=== PATIENT | female | born 1955 | race Caucasian/White ===

== ENCOUNTER 2017-01-01 09:20 | Inpatient (IN) | payer BC, OTHER ==
[~2017-01-01] VITALS: Ht 162.6 cm; Wt 83.3 kg
[2017-01-01] MEDS ORDERED: SODIUM CHLORIDE 0.9% 1,000 ML IV ONE ×2 (09:28→10:27)
[2017-01-01] MEDS ORDERED: SODIUM CHLORIDE 0.9% 1,000ML IVBOLUS ONE ×2 (09:30→10:30)
[2017-01-01] MEDS ORDERED: SODIUM CHLORIDE FLUSH 10ML SYR IVF ONE (09:30)
[2017-01-01] MEDS ORDERED: PLEASE ENTER ALLERGIES MC SCH ×2 (10:00)
[2017-01-01 10:05] LABS: ASPARTATE AMINO TRANSFERASE 25 U/L (15-37); BLOOD UREA NITROGEN 18 mg/dL (7-18)
[2017-01-01 10:11] LABS: IS PT STATUS REG ER OR PRE ER? YES
[2017-01-01] MEDS ORDERED: OMNIPAQUE 350 MG/ML, 150 ML BOTTLE ONE (11:14)
[2017-01-01] MEDS ORDERED: OXYC15TA PO (13:30)
[2017-01-01] MEDS ORDERED: PHEN37.53 PO (13:30)
[2017-01-01] MEDS ORDERED: ZOLP10TA PO (13:30)
[2017-01-01] MEDS ORDERED: ONDANSETRON 2MG/ML, 2ML IVPush PRN (14:00)
[2017-01-01] MEDS ORDERED: POLYETHYLENE GLYCOL 17 GM PACKET PO PRN (14:00)
[2017-01-01] MEDS ORDERED: hydrALAzine 20 MG/ML, 1ML IVPush PRN (14:00)
[2017-01-01] MEDS ORDERED: LABETALOL 5MG/ML 40ML VIAL IVPush PRN (14:00)
[2017-01-01] MEDS ORDERED: ACETAMINOPHEN 325 MG TABLET PO PRN (14:00)
[2017-01-01 15:40] VITALS: BP 137/63
[2017-01-01] MEDS: SODIUM CHLORIDE FLUSH 3ML SYRINGE IVF SCH (21:00)
[2017-01-01] MEDS: CLOPIDOGREL 75 MG TABLET PO SCH (21:19)
[2017-01-01] MEDS: OXYcodone IR 5MG TABLET PO PRN (21:24)
[2017-01-01] MEDS: TEMAZEPAM 15 MG CAPSULE PO PRN (21:24)
[2017-01-02] MEDS: OXYcodone IR 5MG TABLET PO PRN ×4 (02:08→22:37)
[2017-01-02 04:00] VITALS: BP 105/54
[2017-01-02 07:27] LABS: BLOOD UREA NITROGEN 12 mg/dL (7-18)
[2017-01-02 07:31] LABS: ASPARTATE AMINO TRANSFERASE 17 U/L (15-37)
[2017-01-02] MEDS: CLOPIDOGREL 75 MG TABLET PO SCH (08:16)
[2017-01-02] MEDS: SODIUM CHLORIDE FLUSH 3ML SYRINGE IVF SCH ×2 (08:18→21:00)
[2017-01-02] MEDS ORDERED: SENNA/DOCUSATE TABLET PO SCH (09:00)
[2017-01-02 10:30] VITALS: BP 119/72
[2017-01-02 12:25] VITALS: BP 117/74
[2017-01-02 19:53] VITALS: BP 134/83
[2017-01-02] MEDS: TEMAZEPAM 15 MG CAPSULE PO PRN (22:37)
[2017-01-03 03:00] VITALS: BP 117/76
[2017-01-03] MEDS: OXYcodone IR 5MG TABLET PO PRN ×2 (05:02→11:58)
[2017-01-03 06:35] VITALS: BP 126/73
[2017-01-03] MEDS: CLOPIDOGREL 75 MG TABLET PO SCH (09:00)
[2017-01-03] MEDS ORDERED: SENNA/DOCUSATE TABLET PO SCH (09:00)
[2017-01-03] MEDS: SODIUM CHLORIDE FLUSH 3ML SYRINGE IVF SCH (09:01)
[2017-01-03] MEDS ORDERED: CLOP75TA PO (11:07)
[2017-01-03 12:20] VITALS: BP 137/81
== END 2017-01-03 17:00 | disposition home or self-care (01) | DRG 91 ==
LOC: ED 09:58 → EDIP 13:59 → CCU 15:38 → 4WST 01-02 09:42
PROVIDERS: ADMIT Internal Medicine; ATTEND Internal Medicine
DX: I67.1 Cerebral aneurysm, nonruptured (principal); I77.74 Dissection of vertebral artery; I44.2 Atrioventricular block, complete; F11.20 Opioid dependence, uncomplicated; Q25.48 Anomalous origin of subclavian artery; I10 Essential (primary) hypertension; M19.90 Unspecified osteoarthritis, unspecified site; G89.29 Other chronic pain; Z96.643 Presence of artificial hip joint, bilateral; Z82.49 Family history of ischemic heart disease and other diseases of the circulatory system; Z82.61 Family history of arthritis; Z86.79 Personal history of other diseases of the circulatory system; Z87.891 Personal history of nicotine dependence
CPT/HCPCS: 36415; 70450; 70496; 70498; 71010; 71260; 74177; 80053; 80061; 81001; 84443; 84484; 85025; 87081; 93005; 93306; 96360; Q9967; J7030

== ENCOUNTER → 2017-03-01 | Outpatient (CLI) | payer OTHER ==
[~2017-03-01] MED LIST: CLOP75TA PO; OMNIPAQUE 350 MG/ML, 100ML BOTTLE ONE; OXYC15TA PO; PHEN37.53 PO; ZOLP10TA PO
== END | disposition home or self-care (01) ==
LOC: RAD 13:45
PROVIDERS: ATTEND Neurological Surgery
DX: I65.02 Occlusion and stenosis of left vertebral artery (principal); Q27.8 Other specified congenital malformations of peripheral vascular system; I67.1 Cerebral aneurysm, nonruptured; G45.9 Transient cerebral ischemic attack, unspecified
CPT/HCPCS: 70498; Q9967

== ENCOUNTER 2018-01-08 15:08 | Emergency (ER) | payer OTHER ==
[~2018-01-08] VITALS: Ht 165.1 cm; Wt 89.0 kg
[~2018-01-08 15:08] MED LIST changes: -OMNIPAQUE 350 MG/ML, 100ML BOTTLE ONE
[2018-01-08] MEDS ORDERED: ONDANSETRON 2MG/ML, 2ML IVPush ONE (15:30)
[2018-01-08] MEDS ORDERED: PLEASE ENTER HEIGHT AND WEIGHT MC SCH (15:30)
[2018-01-08] MEDS ORDERED: SODIUM CHLORIDE FLUSH 10ML SYR IVF ONE (15:30)
[2018-01-08] MEDS ORDERED: ONDANSETRON 2MG/ML, 2ML ONE (15:31)
[2018-01-08] MEDS ORDERED: MORPHINE SULFATE 4 MG/ML, 1ML ONE (15:31)
[2018-01-08] MEDS: MORPHINE SULFATE 4 MG/ML, 1ML IVPush PRN ×2 (15:32→17:57)
[2018-01-08] MEDS ORDERED: PROPOFOL 10 MG/ML, 20ML ONE (16:33)
[2018-01-08] MEDS ORDERED: PROPOFOL 10 MG/ML, 20ML IVPush ONE (17:00)
[2018-01-08 17:15] VITALS: BP 119/72
== END 2018-01-08 20:13 | disposition home or self-care (01) ==
LOC: ED 17:00
DX: T84.021A Dislocation of internal left hip prosthesis, initial encounter (principal)
CPT/HCPCS: 27265; 72170; 73502; 99152; 99285; J2405

== ENCOUNTER 2018-06-14 17:14 | Inpatient (IN) | payer OTHER ==
[~2018-06-14] VITALS: Ht 165.1 cm; Wt 80.9 kg
[2018-06-14] MEDS ORDERED: ASPIRIN 81 MG TABLET CHEW PO ONE (17:30)
[2018-06-14 17:55] LABS: BASOPHILS # (AUTO) 0.05 x10^3/uL (0-0.1); BASOPHILS % (AUTO) 1 % (0-1); EOSINOPHILS # (AUTO) 0.29 x10^3/uL (0-0.4); EOSINOPHILS % (AUTO) 4 % (1-7); LYMPHOCYTES # (AUTO) 2.01 x10^3/uL (1-3.4); LYMPHOCYTES % (AUTO) 25 % (22-44); MD NO; MEAN CORPUSCULAR HEMOGLOBIN 31.5 pg (27.0-34.8); MEAN CORPUSCULAR HGB CONC 34.2 g/dL (32.4-35.8); MEAN CORPUSCULAR VOLUME 92.1 fL (80-100); MEAN PLATELET VOLUME 8.6 fL (7.4-10.4); MONOCYTES # (AUTO) 0.49 x10^3/uL (0.2-0.8); MONOCYTES % (AUTO) 6 % (2-9); NEUTROPHILS # (AUTO) 5.29 x10^3/uL (1.8-6.8); NEUTROPHILS % (AUTO) 65 % (42-75); PLATELET COUNT 271 x10^3/uL (130-400); RED BLOOD COUNT 5.01 x10^6/uL (3.82-5.3); RED CELL DISTRIBUTION WIDTH 13.3 % (9.6-15.2)
[2018-06-14] MEDS ORDERED: SODIUM CHLORIDE 0.9% 1,000ML IVBOLUS ONE (18:00)
[2018-06-14] MEDS ORDERED: SODIUM CHLORIDE FLUSH 10ML SYR IVF ONE (18:00)
[2018-06-14 18:06] LABS: CHLORIDE 109 mmol/L (98-107)
[2018-06-14 18:16] LABS: ALBUMIN 3.5 g/dL (3.4-5.0); ANION GAP 9 mmol/L (5-15); CALCIUM 9.5 mg/dL (8.5-10.1); CREATININE 0.75 mg/dL (0.55-1.02); TROPONIN I < 0.015 ng/mL (0.000-0.045)
[2018-06-14] MEDS ORDERED: OMNIPAQUE 350 MG/ML, 100ML BOTTLE ONE (19:47)
[2018-06-14] MEDS ORDERED: L. ACIDOPHILUS/B. ANIMALIS/FOS PACKET PO SCH (20:07)
[2018-06-14] MEDS ORDERED: ONDANSETRON ODT 4 MG PO PRN (20:30)
[2018-06-14] MEDS ORDERED: DOCUSATE 100 MG CAPSULE PO PRN (20:30)
[2018-06-14] MEDS ORDERED: TEMAZEPAM 15 MG CAPSULE PO PRN (20:30)
[2018-06-14 21:00] VITALS: BP 138/84
[2018-06-14] MEDS ORDERED: PROBIOTIC MC SCH (21:30)
[2018-06-14] MEDS: D5%-0.45% NACL 1,000 ML IV SCH (21:50)
[2018-06-14] MEDS: ENOXAPARIN 40 MG/0.4 ML SQ SCH (21:50)
[2018-06-14] MEDS: ZOLPIDEM 10MG TABLET PO PRN (21:50)
[2018-06-14] MEDS: AMOXICILLIN/CLAV 500-125MG TABLET PO SCH (21:50)
[2018-06-14] MEDS: OXYcodone IR 5MG TABLET PO SCH (21:50)
[2018-06-15] VITALS (8 sets, daily range): BP systolic 99–148; BP diastolic 63–87
[2018-06-15] MEDS: D5%-0.45% NACL 1,000 ML IV SCH ×3 (04:47→21:58)
[2018-06-15] MEDS: OXYcodone IR 5MG TABLET PO SCH ×4 (04:54→20:44)
[2018-06-15] MEDS: AMOXICILLIN/CLAV 500-125MG TABLET PO SCH ×2 (08:23→16:35)
[2018-06-15] MEDS ORDERED: L. ACIDOPHILUS/B. ANIMALIS/FOS PACKET PO SCH (09:00)
[2018-06-15] MEDS ORDERED: GADOBUTROL 7.5 MMOL/7.5 ML PFS ONE (14:38)
[2018-06-15] MEDS ORDERED: PSEUDOEPHEDRINE 30 MG/5 ML PO PRN (17:00)
[2018-06-15] MEDS ORDERED: IBUPROFEN 200 MG TABLET PO PRN (17:00)
[2018-06-15] MEDS ORDERED: PSEUDOEPHEDRINE 30 MG TABLET PO PRN (17:06)
[2018-06-15] MEDS: CETIRIZINE 10 MG TABLET PO SCH (17:38)
[2018-06-15] MEDS: ENOXAPARIN 40 MG/0.4 ML SQ SCH (20:44)
[2018-06-15] MEDS ORDERED: ATORVASTATIN 40 MG TABLET PO SCH (21:00)
[2018-06-15] MEDS: ZOLPIDEM 10MG TABLET PO PRN (21:58)
[2018-06-15] MEDS: FLUTICASONE NASAL SPRAY 16GM NAS SCH (21:58)
[2018-06-15] MEDS: SODIUM CHLORIDE NASAL SPRAY 45ML BOTTLE NAS SCH (21:58)
[2018-06-15] MEDS: AMOXICILLIN/CLAV 875-125MG TABLET PO SCH (22:02)
[2018-06-16 02:06] VITALS: BP 123/73
[2018-06-16] MEDS: D5%-0.45% NACL 1,000 ML IV SCH (03:59)
[2018-06-16] MEDS ORDERED: ASPIRIN 81 MG TABLET EC PO SCH (06:00)
[2018-06-16] MEDS: OXYcodone IR 5MG TABLET PO SCH ×2 (06:07→10:44)
[2018-06-16 06:49] VITALS: BP 123/76
[2018-06-16] MEDS: AMOXICILLIN/CLAV 875-125MG TABLET PO SCH (08:27)
[2018-06-16] MEDS: SODIUM CHLORIDE NASAL SPRAY 45ML BOTTLE NAS SCH (08:27)
[2018-06-16] MEDS: FLUTICASONE NASAL SPRAY 16GM NAS SCH (08:27)
[2018-06-16] MEDS: CETIRIZINE 10 MG TABLET PO SCH (08:27)
[2018-06-16] MEDS ORDERED: LACTOBACILLUS 1GM/ PACKET PO SCH (09:00)
[2018-06-16 09:47] VITALS: BP 129/77
[2018-06-16 09:49] VITALS: BP 139/92
[2018-06-16 09:51] VITALS: BP 164/101
[2018-06-16] MEDS ORDERED: ASPI-621 PO (10:09)
[2018-06-16] MEDS ORDERED: IBUP-1484 PO (10:09)
[2018-06-16] MEDS ORDERED: SODI44SP NAS (10:09)
[2018-06-16] MEDS ORDERED: CETI10TA18 PO (10:09)
[2018-06-16] MEDS ORDERED: ATOR40TA78 PO (10:09)
[2018-06-16] MEDS ORDERED: FLUT16SP NAS (10:09)
[2018-06-16] MEDS ORDERED: AMOX1TAB64 PO (10:10)
== END 2018-06-16 11:45 | disposition home or self-care (01) | DRG 153 ==
LOC: ED 19:14 → EDIP 19:20 → 5SO 20:43 → 4WST 06-15 17:57 → DCLOUNGE 06-16 11:30
PROVIDERS: ADMIT Hospitalist; ATTEND Hospitalist
DX: J01.90 Acute sinusitis, unspecified (principal); F11.20 Opioid dependence, uncomplicated; E86.0 Dehydration; G89.29 Other chronic pain; Z96.643 Presence of artificial hip joint, bilateral; K04.7 Periapical abscess without sinus; Z82.61 Family history of arthritis; Z82.49 Family history of ischemic heart disease and other diseases of the circulatory system; Z86.73 Personal history of transient ischemic attack (TIA), and cerebral infarction without residual deficits; Z86.79 Personal history of other diseases of the circulatory system; Z87.891 Personal history of nicotine dependence
CPT/HCPCS: 36415; 70450; 70496; 70498; 70553; 71046; 80048; 82040; 82533; 84443; 84484; 85025; 93005; 93306; 96360; A9585; G0378; J1650; Q0162; Q9967; J7030

== ENCOUNTER 2020-11-24 14:57 | Emergency (ER) | payer OTHER ==
[~2020-11-24] VITALS: Ht 170.2 cm; Wt 80.0 kg
[~2020-11-24 14:57] MED LIST changes: +AMOX1TAB64 PO; +ASPI81TA45 PO; +ATOR40TA78 PO; +CETI10TA18 PO; +FLUT16SP24 NAS; +IBUP-1902 PO; -OXYC15TA PO; +OXYC15TA3 PO; +SODI44SP NAS
--- NOTE | 2020-11-24 15:11 | NUR ---
STARTING THIS WHILE SITTING IN HER CHAIR EATING PT STATES SHE STARTED FEELING DIZZY AND FATIGUED WITH BLURRED VISION AND NAUSEA. PT FEELS LIKE SHES GOING TO FAINT. NO LOSS OF CONCIOUSNESS OR HEAD TRAUMA. PT ATTACHED TO ALL MONITORS. VSS. NADN. DR. WOLFE TO BEDSIDE FOR EVALUATION. SON AT BEDSIDE. Addendum: 11/24/20 at 1526 by GARRISON STARTING THIS AFTERNOON WHILE SITTING IN HER CHAIR EATING PT STATES SHE STARTED FEELING DIZZY AND FATIGUED WITH BLURRED VISION AND NAUSEA. PT FEELS LIKE SHES GOING TO FAINT. NO LOSS OF CONCIOUSNESS OR HEAD TRAUMA. PT ATTACHED TO ALL MONITORS. VSS. NADN. DR. WOFLE TO BEDSIDE FOR EVALUATION. SON AT BEDSIDE.
[2020-11-24] MEDS ORDERED: MECLIZINE CHEWABLE 25 MG TAB PO ONE (15:30)
[2020-11-24 15:33] LABS: BASOPHILS % (AUTO) 1 % (0-1); EOSINOPHILS % (AUTO) 8 % (1-7); LYMPHOCYTES % (AUTO) 26 % (22-44); MD NO; MEAN CORPUSCULAR HEMOGLOBIN 31.8 pg (27.0-34.8); MEAN CORPUSCULAR HGB CONC 34.1 g/dL (32.4-35.8); MEAN PLATELET VOLUME 8.3 fL (7.4-10.4); MONOCYTES % (AUTO) 12 % (2-9); NEUTROPHILS % (AUTO) 52 % (42-75); PLATELET COUNT 223 x10^3/uL (130-400); RED BLOOD COUNT 4.61 x10^6/uL (3.82-5.3)
--- NOTE | 2020-11-24 15:33 | NUR ---
pt to ct.
[2020-11-24] MEDS ORDERED: MECLIZINE CHEWABLE 25 MG TAB ONE (15:34)
[2020-11-24 15:43] LABS: ALBUMIN 3.2 g/dL (3.4-5.0); ANION GAP 5 mmol/L (5-15); CALCIUM 9.6 mg/dL (8.5-10.1); CHLORIDE 109 mmol/L (98-107); CREATININE 0.63 mg/dL (0.55-1.02)
[2020-11-24 15:47] LABS: TROPONIN I < 0.015 ng/mL (0.000-0.045)
--- NOTE | 2020-11-24 15:50 | NUR ---
PT BACK FROM CT. UP TO BATHROOM WITH STEADY GAIT TO COLLECT UA. NADN. MEDICATED PER EMAR. SON AT BEDSIDE.
[2020-11-24 16:12] LABS: MICROSCOPIC AUTO
[2020-11-24 16:58] VITALS: BP 140/71
--- NOTE | 2020-11-24 17:13 | NUR ---
Patient/Caregiver given discharge instructions and they have confirmed that they understand the instructions. Patient ambulatory with steady gait.
== END 2020-11-24 17:14 | disposition home or self-care (01) ==
LOC: ED 17:12
DX: R42 Dizziness and giddiness (principal); R11.0 Nausea; M19.90 Unspecified osteoarthritis, unspecified site
CPT/HCPCS: 36415; 70450; 80048; 81001; 82040; 84484; 85025; 99284

== ENCOUNTER 2021-04-18 05:58 | Emergency (ER) | payer OTHER ==
[~2021-04-18] VITALS: Ht 162.6 cm; Wt 75.0 kg
[2021-04-18 08:14] VITALS: BP 147/81
--- NOTE | 2021-04-18 08:16 | NUR ---
CNC SERVICE TECHNICIAN: PT SEEN BY SELENA HEBERT AT THIS TIME. [facility] RESP EVEN AND UNLABORED, [facility]SM[facility].
[2021-04-18 09:02] LABS: BASOPHILS % (AUTO) 1 % (0-1); EOSINOPHILS % (AUTO) 7 % (1-7); LYMPHOCYTES % (AUTO) 16 % (22-44); MEAN CORPUSCULAR HEMOGLOBIN 32.1 pg (27.0-34.8); MEAN CORPUSCULAR HGB CONC 34.4 g/dL (32.4-35.8); MEAN PLATELET VOLUME 8.5 fL (7.4-10.4); MONOCYTES % (AUTO) 6 % (2-9); NEUTROPHILS % (AUTO) 71 % (42-75); PLATELET COUNT 259 x10^3/uL (130-400); RED BLOOD COUNT 4.83 x10^6/uL (3.82-5.3); RED CELL DISTRIBUTION WIDTH 13.6 % (9.6-15.2)
--- NOTE | 2021-04-18 09:08 | NUR ---
logistics clerk note: Pt to room from lobby.
--- NOTE | 2021-04-18 09:10 | NUR ---
Pt taken to room 36, requested to change to gown. Waiting for PCXR/labs.
[2021-04-18 09:13] LABS: ALBUMIN 3.3 g/dL (3.4-5.0); ANION GAP 5 mmol/L (5-15); CALCIUM 9.4 mg/dL (8.5-10.1); CHLORIDE 109 mmol/L (98-107); CREATININE 0.55 mg/dL (0.55-1.02)
--- NOTE | 2021-04-18 09:26 | NUR ---
Dr Rios at bedside, pt to be d/c.
--- NOTE | 2021-04-18 09:47 | NUR ---
EKG cancelled pt being dc home with instruct to f/u with her pcp return to ER if worse or concerns.
== END 2021-04-18 10:45 | disposition home or self-care (01) ==
LOC: ED 10:35
DX: J20.9 Acute bronchitis, unspecified (principal); R06.00 Dyspnea, unspecified; Z87.891 Personal history of nicotine dependence
CPT/HCPCS: 36415; 71045; 80048; 82040; 85025; 99284